=== PATIENT | male | born 1965 | race Caucasian/White ===

== ENCOUNTER 2020-09-04 21:05 | Emergency (ER) | payer SELFPAY ==
[~2020-09-04] VITALS: Ht 190.5 cm; Wt 111.1 kg
[2020-09-04] MEDS ORDERED: ACETAMINOPHEN 325 MG TAB PO ONE (22:30)
[2020-09-04 22:33] VITALS: BP 100/55
== END 2020-09-05 00:46 | disposition home or self-care (01) ==
LOC: ER 21:11
DX: M25.461 Effusion, right knee (principal); I10 Essential (primary) hypertension; F17.210 Nicotine dependence, cigarettes, uncomplicated; Z98.890 Other specified postprocedural states
CPT/HCPCS: 29505; 73562; 73610; 73630

== ENCOUNTER 2020-10-17 04:57 | Inpatient (IN) | payer MEDICAID ==
[~2020-10-17] VITALS: Ht 190.5 cm; Wt 131.6 kg
[2020-10-17] VITALS (24 sets, daily range): BP systolic 84–137; BP diastolic 51–83
[2020-10-17] MEDS ORDERED: ENOXAPARIN SOD 120 MG/0.8 ML SYRINGE SC ONE (06:45)
[2020-10-17] MEDS ORDERED: CLOPIDOGREL BISULFATE 75 MG TAB PO ONE (06:45)
[2020-10-17] MEDS ORDERED: IOHEXOL 350 MG/ML 100ML IJ ONE (06:48)
[2020-10-17 09:17] LABS: Basophils # (auto) 0.1 10 ^3/uL (0-0.2); Eosinophils # (auto) 0.2 10 ^3/uL (0-0.8); Eosinophils % (auto) 4.2 % (0.0-7.0); Hematocrit 37.1 % (41.0-53.0); Hemoglobin 12.4 g/dL (13.5-17.5); Lymphocytes # (auto) 1.3 10 ^3/uL (0.4-5.4); Lymphocytes % (auto) 23.6 % (10.0-50.0); Mean Corpuscular Hemoglobin 30.2 pg (28.0-32.0); Mean Corpuscular Hgb Conc. 33.4 g/dL (32.0-36.0); Mean Corpuscular Volume 90.3 fL (80.0-100.0); Monocytes # (auto) 0.7 10 ^3/uL (0-1.3); Monocytes % (auto) 12.5 % (0.0-12.0); Neutrophils # (auto) 3.3 10 ^3/uL (1.6-8.6); Neutrophils % (auto) 58.7 % (37.0-80.0); Platelet Count (auto) 103 10^3/uL (140-450); Red Blood Cells 4.11 10^6/uL (4.5-5.90); Red Cell Distribution Width 14.9 % (11.8-14.3); White Blood Cell 5.6 10^3/uL (4.4-10.8)
[2020-10-17 09:40] LABS: Albumin 2.7 g/dL (3.4-5.0); BUN/Creatinine Ratio 12.1; Calcium 7.8 mg/dL (8.5-10.1); Potassium 3.6 mmol/L (3.5-5.1)
[2020-10-17 09:55] LABS: Bilirubin, Total 1.6 mg/dL (0.2-1.0); Total Protein 6.7 g/dL (6.4-8.2)
[2020-10-17] MEDS ORDERED: NICOTINE 21MG/24 HR TOPICAL PATCH TD SCH (11:15)
[2020-10-17] MEDS ORDERED: MORPHINE SULF INJ 2 MG/ML SYRINGE 1ML IV PRN ×2 (11:15)
[2020-10-17] MEDS ORDERED: NITROGLYCERIN 0.4 MG SL TAB SL PRN (11:15)
[2020-10-17] MEDS ORDERED: ONDANSETRON HCL 4 MG/2 ML VIAL IV PRN (11:15)
[2020-10-17] MEDS ORDERED: ACETAMINOPHEN 500 MG TAB PO PRN (11:15)
[2020-10-17] MEDS ORDERED: HYDROcodone-ACET 5/325MG TAB PO PRN (11:15)
[2020-10-17] MEDS: cefTRIAXone 1GM/50ML D5W 50 ML IV SCH (11:41)
[2020-10-17] MEDS: PROPRANOLOL HCL 20 MG TAB PO SCH ×2 (11:41→22:00)
[2020-10-17] MEDS: SPIRONOLACTONE 25 MG TAB PO SCH (11:41)
[2020-10-17] MEDS ORDERED: FOLIC ACID 1 MG, MULTIPLE VITAMIN 10 ML, MAGNESIUM SULF SDV 50% 8 MEQ, THIAMINE INJ 100... INJ SCH ×5 (12:00)
[2020-10-17 12:30] LABS: INR 1.18 (0.9-1.15)
[2020-10-17 13:11] LABS: Urine Bacteria NONE SEEN /hpf (None Seen); Urine Blood 1+ /uL (Negative); Urine Mucus FEW (None Seen); Urine Specific Gravity 1.035 (1.001-1.035); Urine WBC 4 /hpf (0 - 3)
[2020-10-17 13:15] LABS: Alcohol, Urine < 3.0 mg/dL (0-10); Amphetamine Screen, Urine POSITIVE (NEGATIVE); Barbiturate Scree,Urine NEGATIVE (NEGATIVE); Benzodiazephine Screen, Urine NEGATIVE (NEGATIVE); Cocaine Screen, Urine NEGATIVE (NEGATIVE); Opiate Scree,Urine POSITIVE (NEGATIVE); Phencyclidine Screen, Urine NEGATIVE (NEGATIVE)
[2020-10-17 13:23] LABS: Cannabinoid Screen, Urine POSITIVE (NEGATIVE)
[2020-10-17] MEDS: CLINDAMYCIN 300MG IV 50 ML IV SCH ×2 (14:00→22:20)
[2020-10-17] MEDS: LORazepam 2MG/ML-1ML VIAL IV PRN (14:02)
[2020-10-17] MEDS ORDERED: SUCCINYLCHOLINE CHLORIDE 20 MG/ML 10ML VIAL IV ONE ×2 (15:48→16:30)
[2020-10-17] MEDS ORDERED: MIDAZOLAM DRIP 50 mg/50mL 50 ML IV ONE (15:48)
[2020-10-17] MEDS ORDERED: ETOMIDATE (2MG/ML) 20ML VIAL IV ONE ×3 (15:48→16:30)
[2020-10-17] MEDS ORDERED: NOREPINEPHRINE 8 MG/250ML KIT 250 ML IV ONE (16:02)
[2020-10-17] MEDS ORDERED: fentaNYL Drip 2500mCg/250mlNS 250 ML IV ONE (16:16)
[2020-10-17] MEDS: fentaNYL Drip 2500mCg/250mlNS 250 ML IV SCH (16:30)
[2020-10-17] MEDS ORDERED: fentaNYL Drip 2500mCg/250mlNS 250 ML IV SCH (16:30)
[2020-10-17] MEDS ORDERED: MIDAZOLAM DRIP 50 mg/50mL 50 ML IV SCH (16:30)
[2020-10-17] MEDS: NOREPINEPHRINE 8 MG/250ML KIT 250 ML IV SCH (16:40)
[2020-10-17] MEDS: MIDAZOLAM DRIP 50 mg/50mL 50 ML IV SCH (16:53)
[2020-10-17] MEDS ORDERED: WARFARIN SODIUM 10 MG TAB PO ONE (17:00)
[2020-10-17] MEDS: ENOXAPARIN SOD 120 MG/0.8 ML SYRINGE SC SCH (22:30)
[2020-10-17 23:00] LABS: Basophils # (auto) 0.1 10 ^3/uL (0-0.2); Basophils % (auto) 0.8 % (0.0-2.0); Eosinophils # (auto) 0.2 10 ^3/uL (0-0.8); Eosinophils % (auto) 1.7 % (0.0-7.0); Hemoglobin 14.4 g/dL (13.5-17.5); Mean Corpuscular Hgb Conc. 34.2 g/dL (32.0-36.0); Mean Corpuscular Volume 90.8 fL (80.0-100.0); Monocytes # (auto) 1.1 10 ^3/uL (0-1.3); Monocytes % (auto) 10.7 % (0.0-12.0); Neutrophils # (auto) 7.2 10 ^3/uL (1.6-8.6); Neutrophils % (auto) 67.8 % (37.0-80.0); Nucleated Red Blood Cells % 0.6 %; Platelet Count (auto) 172 10^3/uL (140-450); Red Blood Cells 4.63 10^6/uL (4.5-5.90); Red Cell Distribution Width 14.8 % (11.8-14.3); White Blood Cell 10.7 10^3/uL (4.4-10.8)
[2020-10-17 23:15] LABS: INR 1.26 (0.9-1.15); Partial Thromboplastin Time 28.6 sec (23.0-31.2)
[2020-10-17 23:21] LABS: Albumin 3.1 g/dL (3.4-5.0); BUN/Creatinine Ratio 12.2; Calcium 8.2 mg/dL (8.5-10.1); Potassium 5.2 mmol/L (3.5-5.1)
[2020-10-17 23:32] LABS: Magnesium 2.2 mg/dL (1.6-2.6); Total Protein 7.9 g/dL (6.4-8.2)
[2020-10-18] VITALS (83 sets, daily range): BP systolic 75–144; BP diastolic 41–84
[2020-10-18] MEDS ORDERED: PROPOFOL 100 ML IV ONE (00:18)
[2020-10-18] MEDS: CLINDAMYCIN 300MG IV 50 ML IV SCH ×3 (06:00→22:00)
[2020-10-18] MEDS: PROPOFOL 100 ML IV SCH ×3 (09:00→15:59)
[2020-10-18] MEDS: cefTRIAXone 1GM/50ML D5W 50 ML IV SCH ×2 (09:47→23:00)
[2020-10-18] MEDS: ENOXAPARIN SOD 120 MG/0.8 ML SYRINGE SC SCH ×2 (09:48→22:00)
[2020-10-18] MEDS: FLORASTOR (S. BOULARDII) 250 MG CAP PO SCH (09:49)
[2020-10-18] MEDS: SPIRONOLACTONE 25 MG TAB PO SCH (09:50)
[2020-10-18] MEDS: PROPRANOLOL HCL 20 MG TAB PO SCH ×2 (09:50→22:00)
[2020-10-18] MEDS ORDERED: FAMOTIDINE 20 MG TAB PO SCH (10:00)
[2020-10-18 11:31] LABS: Hematocrit 43.1 % (41.0-53.0); Hemoglobin 14.4 g/dL (13.5-17.5); Mean Corpuscular Hemoglobin 30.8 pg (28.0-32.0); Mean Corpuscular Hgb Conc. 33.4 g/dL (32.0-36.0); Mean Corpuscular Volume 92.2 fL (80.0-100.0); Platelet Count (auto) 137 10^3/uL (140-450); Red Blood Cells 4.67 10^6/uL (4.5-5.90); Red Cell Distribution Width 15.1 % (11.8-14.3); White Blood Cell 16.6 10^3/uL (4.4-10.8)
[2020-10-18 11:53] LABS: Basophils % (manual) 0 (0.0-2.0); Blast Cells 0; Metamyelocytes % 0; Myelocytes % 0; Promyelocytes % 0; Reactive Lymphocytes 0
[2020-10-18] MEDS: MIDAZOLAM DRIP 50 mg/50mL 50 ML IV SCH (12:00)
[2020-10-18] MEDS: SODIUM CHLORIDE 0.9% 1,000 ML IV SCH ×2 (12:00→23:35)
[2020-10-18 12:41] LABS: Band Neutrophils % (manual) 2; Lymphocytes % (manual) 27 (10.0-50.0)
[2020-10-18 12:42] LABS: Eosinophils % (manual) 3 (0-7); Monocytes % (manual) 16 (0-12)
[2020-10-18 12:50] LABS: Calcium 7.9 mg/dL (8.5-10.1); Potassium 4.3 mmol/L (3.5-5.1)
[2020-10-18] MEDS: NOREPINEPHRINE 8 MG/250ML KIT 250 ML IV SCH (16:30)
[2020-10-18] MEDS: fentaNYL Drip 2500mCg/250mlNS 250 ML IV SCH (18:21)
[2020-10-18] MEDS: SUCRALFATE 1 GM/10 ML ORAL SUSP GT SCH (22:00)
[2020-10-18] MEDS: PANTOPRAZOLE 40 MG/10 ML VIAL INJ IV SCH (22:00)
[2020-10-19] VITALS (67 sets, daily range): BP systolic 95–122; BP diastolic 7–73
[2020-10-19 04:07] LABS: Basophils # (auto) 0.1 10 ^3/uL (0-0.2); Basophils % (auto) 0.8 % (0.0-2.0); Eosinophils # (auto) 0.4 10 ^3/uL (0-0.8); Hematocrit 40.7 % (41.0-53.0); Hemoglobin 14.2 g/dL (13.5-17.5); Lymphocytes # (auto) 2.1 10 ^3/uL (0.4-5.4); Lymphocytes % (auto) 22.7 % (10.0-50.0); Mean Corpuscular Hemoglobin 31.1 pg (28.0-32.0); Monocytes # (auto) 1.1 10 ^3/uL (0-1.3); Monocytes % (auto) 12.2 % (0.0-12.0); Neutrophils # (auto) 5.6 10 ^3/uL (1.6-8.6); Neutrophils % (auto) 60.3 % (37.0-80.0); Nucleated Red Blood Cells % 0.3 %; Platelet Count (auto) 118 10^3/uL (140-450); Red Blood Cells 4.57 10^6/uL (4.5-5.90); Red Cell Distribution Width 14.4 % (11.8-14.3); White Blood Cell 9.4 10^3/uL (4.4-10.8)
[2020-10-19 04:21] LABS: INR 1.27 (0.9-1.15); Partial Thromboplastin Time 32.8 sec (23.0-31.2)
[2020-10-19 04:29] LABS: Potassium 4.1 mmol/L (3.5-5.1)
[2020-10-19 04:36] LABS: Albumin 2.6 g/dL (3.4-5.0); BUN/Creatinine Ratio 17.9; Bilirubin, Total 3.1 mg/dL (0.2-1.0); Calcium 7.8 mg/dL (8.5-10.1)
[2020-10-19] MEDS: ALBUTEROL SULF 2.5 MG/0.5ML(0.5%) NEB SOLN NEB PRN (06:13)
[2020-10-19] MEDS: IPRATROPIUM BROM 0.5 MG/2.5ML INH SOL NEB PRN (06:13)
[2020-10-19] MEDS: SUCRALFATE 1 GM/10 ML ORAL SUSP GT SCH ×4 (06:25→22:54)
[2020-10-19] MEDS: CLINDAMYCIN 300MG IV 50 ML IV SCH ×3 (06:25→22:55)
[2020-10-19] MEDS: PROPRANOLOL HCL 20 MG TAB PO SCH ×2 (10:00→22:00)
[2020-10-19] MEDS: ENOXAPARIN SOD 120 MG/0.8 ML SYRINGE SC SCH (10:15)
[2020-10-19] MEDS: FLORASTOR (S. BOULARDII) 250 MG CAP PO SCH (10:15)
[2020-10-19] MEDS: PANTOPRAZOLE 40 MG/10 ML VIAL INJ IV SCH ×2 (10:16→22:55)
[2020-10-19] MEDS: cefTRIAXone 1GM/50ML D5W 50 ML IV SCH (10:16)
[2020-10-19] MEDS: SODIUM CHLORIDE 0.9% 1,000 ML IV SCH (12:55)
[2020-10-19] MEDS: NOREPINEPHRINE 8 MG/250ML KIT 250 ML IV SCH (14:03)
[2020-10-19] MEDS: fentaNYL Drip 2500mCg/250mlNS 250 ML IV SCH (16:30)
[2020-10-19] MEDS: MIDAZOLAM DRIP 50 mg/50mL 50 ML IV SCH (16:45)
[2020-10-20] VITALS (89 sets, daily range): BP systolic 91–131; BP diastolic 43–82
[2020-10-20] MEDS: cefTRIAXone 1GM/50ML D5W 50 ML IV SCH ×3 (00:16→21:08)
[2020-10-20] MEDS: PROPOFOL 100 ML IV SCH ×2 (00:23→23:18)
[2020-10-20] MEDS: MIDAZOLAM DRIP 50 mg/50mL 50 ML IV SCH ×3 (00:24→19:40)
[2020-10-20] MEDS: CLINDAMYCIN 300MG IV 50 ML IV SCH ×3 (06:00→21:55)
[2020-10-20] MEDS: SUCRALFATE 1 GM/10 ML ORAL SUSP GT SCH ×4 (07:00→21:08)
[2020-10-20] MEDS: PROPRANOLOL HCL 20 MG TAB PO SCH ×2 (10:00→21:08)
[2020-10-20] MEDS: PANTOPRAZOLE 40 MG/10 ML VIAL INJ IV SCH ×2 (10:21→21:08)
[2020-10-20] MEDS: FLORASTOR (S. BOULARDII) 250 MG CAP PO SCH (10:22)
[2020-10-20] MEDS ORDERED: ENOXAPARIN SOD 150 MG/1 ML SYRINGE SC ONE (13:45)
[2020-10-20 14:55] LABS: BUN/Creatinine Ratio 17.1; Calcium 7.6 mg/dL (8.5-10.1); Potassium 4.2 mmol/L (3.5-5.1)
[2020-10-20] MEDS: fentaNYL Drip 2500mCg/250mlNS 250 ML IV SCH (16:14)
[2020-10-20] MEDS: NOREPINEPHRINE 8 MG/250ML KIT 250 ML IV SCH (16:15)
[2020-10-20] MEDS ORDERED: ENOXAPARIN SOD 150 MG/1 ML SYRINGE SC SCH (22:00)
[2020-10-21] VITALS (103 sets, daily range): BP systolic 81–117; BP diastolic 37–99
[2020-10-21] MEDS: MIDAZOLAM DRIP 50 mg/50mL 50 ML IV SCH ×3 (00:20→19:30)
[2020-10-21] MEDS: IPRATROPIUM BROM 0.5 MG/2.5ML INH SOL NEB PRN (02:28)
[2020-10-21] MEDS: ALBUTEROL SULF 2.5 MG/0.5ML(0.5%) NEB SOLN NEB PRN (02:28)
[2020-10-21] MEDS: SUCRALFATE 1 GM/10 ML ORAL SUSP GT SCH ×4 (05:40→21:03)
[2020-10-21] MEDS: fentaNYL Drip 2500mCg/250mlNS 250 ML IV SCH (05:40)
[2020-10-21] MEDS: CLINDAMYCIN 300MG IV 50 ML IV SCH ×3 (05:40→22:00)
[2020-10-21] MEDS: PROPOFOL 100 ML IV SCH ×3 (05:41→21:04)
[2020-10-21 05:51] LABS: Basophils # (auto) 0.1 10 ^3/uL (0-0.2); Basophils % (auto) 1.3 % (0.0-2.0); Eosinophils # (auto) 0.2 10 ^3/uL (0-0.8); Eosinophils % (auto) 2.9 % (0.0-7.0); Hematocrit 38.8 % (41.0-53.0); Hemoglobin 13.6 g/dL (13.5-17.5); Lymphocytes # (auto) 0.9 10 ^3/uL (0.4-5.4); Lymphocytes % (auto) 12.6 % (10.0-50.0); Mean Corpuscular Hemoglobin 31.2 pg (28.0-32.0); Mean Corpuscular Volume 89.3 fL (80.0-100.0); Monocytes # (auto) 0.9 10 ^3/uL (0-1.3); Monocytes % (auto) 11.9 % (0.0-12.0); Neutrophils # (auto) 5.2 10 ^3/uL (1.6-8.6); Neutrophils % (auto) 71.3 % (37.0-80.0); Nucleated Red Blood Cells % 0.2 %; Platelet Count (auto) 276 10^3/uL (140-450); Red Blood Cells 4.35 10^6/uL (4.5-5.90); Red Cell Distribution Width 15.1 % (11.8-14.3); White Blood Cell 7.3 10^3/uL (4.4-10.8)
[2020-10-21] MEDS: cefTRIAXone 1GM/50ML D5W 50 ML IV SCH ×2 (09:52→21:03)
[2020-10-21] MEDS: PANTOPRAZOLE 40 MG/10 ML VIAL INJ IV SCH ×2 (09:52→21:03)
[2020-10-21] MEDS: FLORASTOR (S. BOULARDII) 250 MG CAP PO SCH (09:53)
[2020-10-21] MEDS: PROPRANOLOL HCL 20 MG TAB PO SCH ×2 (09:53→21:03)
[2020-10-21] MEDS: ENOXAPARIN SOD 80 MG/0.8ML SYRINGE SC SCH ×2 (10:00→21:03)
[2020-10-21] MEDS: NOREPINEPHRINE 8 MG/250ML KIT 250 ML IV SCH (15:37)
[2020-10-22] VITALS (103 sets, daily range): BP systolic 87–163; BP diastolic 35–110
[2020-10-22 04:37] LABS: Basophils # (auto) 0.1 10 ^3/uL (0-0.2); Eosinophils # (auto) 0.2 10 ^3/uL (0-0.8); Eosinophils % (auto) 3.1 % (0.0-7.0); Hematocrit 38.1 % (41.0-53.0); Lymphocytes # (auto) 1.1 10 ^3/uL (0.4-5.4); Lymphocytes % (auto) 15.5 % (10.0-50.0); Mean Corpuscular Hemoglobin 30.5 pg (28.0-32.0); Mean Corpuscular Hgb Conc. 34.2 g/dL (32.0-36.0); Mean Corpuscular Volume 89.1 fL (80.0-100.0); Monocytes # (auto) 0.8 10 ^3/uL (0-1.3); Monocytes % (auto) 11.2 % (0.0-12.0); Neutrophils % (auto) 69.2 % (37.0-80.0); Nucleated Red Blood Cells % 0.1 %; Platelet Count (auto) 121 10^3/uL (140-450); Red Blood Cells 4.28 10^6/uL (4.5-5.90); Red Cell Distribution Width 15.3 % (11.8-14.3); White Blood Cell 7.3 10^3/uL (4.4-10.8)
[2020-10-22 04:53] LABS: Calcium 7.4 mg/dL (8.5-10.1); Potassium 4.5 mmol/L (3.5-5.1)
[2020-10-22 04:59] LABS: Albumin 2.3 g/dL (3.4-5.0); BUN/Creatinine Ratio 22.2; Bilirubin, Total 3.9 mg/dL (0.2-1.0); Total Protein 6.8 g/dL (6.4-8.2)
[2020-10-22] MEDS: SUCRALFATE 1 GM/10 ML ORAL SUSP GT SCH ×4 (05:09→20:36)
[2020-10-22] MEDS: CLINDAMYCIN 300MG IV 50 ML IV SCH ×3 (05:09→20:36)
[2020-10-22] MEDS: MIDAZOLAM DRIP 50 mg/50mL 50 ML IV SCH ×4 (05:48→16:42)
[2020-10-22] MEDS: PANTOPRAZOLE 40 MG/10 ML VIAL INJ IV SCH ×2 (09:18→20:36)
[2020-10-22] MEDS: cefTRIAXone 1GM/50ML D5W 50 ML IV SCH ×2 (09:19→21:29)
[2020-10-22] MEDS: FLORASTOR (S. BOULARDII) 250 MG CAP PO SCH (09:19)
[2020-10-22] MEDS: PROPRANOLOL HCL 20 MG TAB PO SCH ×2 (09:20→20:36)
[2020-10-22] MEDS: ENOXAPARIN SOD 80 MG/0.8ML SYRINGE SC SCH ×2 (09:22→20:36)
[2020-10-22] MEDS: PROPOFOL 100 ML IV SCH ×3 (10:48→20:36)
[2020-10-22] MEDS: NOREPINEPHRINE 8 MG/250ML KIT 250 ML IV SCH (16:40)
[2020-10-22] MEDS: fentaNYL Drip 2500mCg/250mlNS 250 ML IV SCH (16:42)
[2020-10-23] VITALS (59 sets, daily range): BP systolic 89–138; BP diastolic 47–92
[2020-10-23] MEDS: fentaNYL Drip 2500mCg/250mlNS 250 ML IV SCH ×2 (03:48→08:12)
[2020-10-23] MEDS: PROPOFOL 100 ML IV SCH ×5 (03:49→17:20)
[2020-10-23] MEDS: MIDAZOLAM DRIP 50 mg/50mL 50 ML IV SCH ×3 (03:49→17:21)
[2020-10-23 03:50] LABS: Basophils # (auto) 0.1 10 ^3/uL (0-0.2); Basophils % (auto) 0.9 % (0.0-2.0); Eosinophils # (auto) 0.5 10 ^3/uL (0-0.8); Eosinophils % (auto) 5.9 % (0.0-7.0); Hematocrit 38.9 % (41.0-53.0); Hemoglobin 13.7 g/dL (13.5-17.5); Lymphocytes # (auto) 1.5 10 ^3/uL (0.4-5.4); Mean Corpuscular Hemoglobin 31.3 pg (28.0-32.0); Mean Corpuscular Hgb Conc. 35.1 g/dL (32.0-36.0); Mean Corpuscular Volume 89.1 fL (80.0-100.0); Monocytes # (auto) 1.1 10 ^3/uL (0-1.3); Monocytes % (auto) 12.2 % (0.0-12.0); Neutrophils # (auto) 5.8 10 ^3/uL (1.6-8.6); Nucleated Red Blood Cells % 0.2 %; Platelet Count (auto) 210 10^3/uL (140-450); Red Blood Cells 4.36 10^6/uL (4.5-5.90); Red Cell Distribution Width 15.2 % (11.8-14.3)
[2020-10-23 04:10] LABS: Albumin 2.2 g/dL (3.4-5.0); Calcium 7.5 mg/dL (8.5-10.1)
[2020-10-23 04:13] LABS: BUN/Creatinine Ratio 20.6; Bilirubin, Total 4.2 mg/dL (0.2-1.0); Total Protein 6.8 g/dL (6.4-8.2)
[2020-10-23] MEDS: CLINDAMYCIN 300MG IV 50 ML IV SCH ×3 (06:00→22:36)
[2020-10-23] MEDS: SUCRALFATE 1 GM/10 ML ORAL SUSP GT SCH ×4 (06:24→22:36)
[2020-10-23] MEDS: NOREPINEPHRINE 8 MG/250ML KIT 250 ML IV SCH (08:13)
[2020-10-23 08:19] LABS: Magnesium 1.9 mg/dL (1.6-2.6); Phosphorus 3.4 mg/dL (2.5-4.90)
[2020-10-23] MEDS: PROPRANOLOL HCL 20 MG TAB PO SCH ×2 (08:45→22:00)
[2020-10-23] MEDS: cefTRIAXone 1GM/50ML D5W 50 ML IV SCH ×2 (09:30→22:36)
[2020-10-23] MEDS: PANTOPRAZOLE 40 MG/10 ML VIAL INJ IV SCH ×2 (09:30→22:36)
[2020-10-23] MEDS: ENOXAPARIN SOD 80 MG/0.8ML SYRINGE SC SCH ×2 (09:31→22:36)
[2020-10-23] MEDS: FLORASTOR (S. BOULARDII) 250 MG CAP PO SCH (10:00)
[2020-10-23] MEDS ORDERED: FLUCONAZOLE 200MG/100ML 100 ML IV ONE (12:00)
[2020-10-23] MEDS: IPRATROPIUM BROM 0.5 MG/2.5ML INH SOL NEB PRN ×2 (14:14→18:53)
[2020-10-23] MEDS: ALBUTEROL SULF 2.5 MG/0.5ML(0.5%) NEB SOLN NEB PRN ×2 (14:14→18:53)
[2020-10-24] VITALS (98 sets, daily range): BP systolic 89–125; BP diastolic 48–79
[2020-10-24] MEDS: fentaNYL Drip 2500mCg/250mlNS 250 ML IV SCH ×2 (02:00→12:57)
[2020-10-24] MEDS: CLINDAMYCIN 300MG IV 50 ML IV SCH ×3 (05:51→21:52)
[2020-10-24] MEDS: SUCRALFATE 1 GM/10 ML ORAL SUSP GT SCH ×4 (05:51→21:52)
[2020-10-24] MEDS: MIDAZOLAM DRIP 50 mg/50mL 50 ML IV SCH ×2 (05:54→09:06)
[2020-10-24 06:07] LABS: Basophils # (auto) 0.1 10 ^3/uL (0-0.2); Basophils % (auto) 1.1 % (0.0-2.0); Eosinophils # (auto) 0.5 10 ^3/uL (0-0.8); Eosinophils % (auto) 6.6 % (0.0-7.0); Hematocrit 40.4 % (41.0-53.0); Hemoglobin 13.8 g/dL (13.5-17.5); Lymphocytes # (auto) 1.5 10 ^3/uL (0.4-5.4); Lymphocytes % (auto) 19.5 % (10.0-50.0); Mean Corpuscular Hemoglobin 30.8 pg (28.0-32.0); Mean Corpuscular Hgb Conc. 34.1 g/dL (32.0-36.0); Mean Corpuscular Volume 90.2 fL (80.0-100.0); Monocytes % (auto) 12.1 % (0.0-12.0); Neutrophils # (auto) 4.8 10 ^3/uL (1.6-8.6); Neutrophils % (auto) 60.7 % (37.0-80.0); Nucleated Red Blood Cells % 0.2 %; Platelet Count (auto) 138 10^3/uL (140-450); Red Blood Cells 4.48 10^6/uL (4.5-5.90); Red Cell Distribution Width 15.5 % (11.8-14.3); White Blood Cell 7.9 10^3/uL (4.4-10.8)
[2020-10-24 06:26] LABS: Calcium 7.6 mg/dL (8.5-10.1); Potassium 4.4 mmol/L (3.5-5.1)
[2020-10-24] MEDS: PROPRANOLOL HCL 20 MG TAB PO SCH ×2 (09:04→21:52)
[2020-10-24] MEDS: cefTRIAXone 1GM/50ML D5W 50 ML IV SCH ×2 (09:06→21:52)
[2020-10-24] MEDS: PROPOFOL 100 ML IV SCH ×5 (09:06→22:15)
[2020-10-24] MEDS: ENOXAPARIN SOD 80 MG/0.8ML SYRINGE SC SCH ×2 (09:07→21:52)
[2020-10-24] MEDS: PANTOPRAZOLE 40 MG/10 ML VIAL INJ IV SCH ×2 (09:07→21:52)
[2020-10-24] MEDS: FLORASTOR (S. BOULARDII) 250 MG CAP PO SCH (09:07)
[2020-10-24] MEDS ORDERED: FLUCONAZOLE 200MG/100ML 100 ML IV SCH (10:00)
[2020-10-24] MEDS: FLUCONAZOLE 200MG/100ML 100 ML IV SCH ×2 (10:06→11:56)
[2020-10-24] MEDS: NOREPINEPHRINE 8 MG/250ML KIT 250 ML IV SCH ×2 (14:20→23:59)
[2020-10-25] VITALS (106 sets, daily range): BP systolic 87–116; BP diastolic 51–69
[2020-10-25] MEDS: PROPOFOL 100 ML IV SCH ×4 (01:00→18:17)
[2020-10-25 04:06] LABS: Basophils # (auto) 0.1 10 ^3/uL (0-0.2); Basophils % (auto) 0.9 % (0.0-2.0); Eosinophils # (auto) 0.5 10 ^3/uL (0-0.8); Eosinophils % (auto) 5.6 % (0.0-7.0); Hematocrit 40.6 % (41.0-53.0); Hemoglobin 13.9 g/dL (13.5-17.5); Lymphocytes # (auto) 1.2 10 ^3/uL (0.4-5.4); Lymphocytes % (auto) 14.3 % (10.0-50.0); Mean Corpuscular Hemoglobin 30.8 pg (28.0-32.0); Mean Corpuscular Hgb Conc. 34.2 g/dL (32.0-36.0); Mean Corpuscular Volume 89.8 fL (80.0-100.0); Monocytes % (auto) 11.5 % (0.0-12.0); Neutrophils # (auto) 5.6 10 ^3/uL (1.6-8.6); Neutrophils % (auto) 67.7 % (37.0-80.0); Nucleated Red Blood Cells % 0.3 %; Platelet Count (auto) 157 10^3/uL (140-450); Red Blood Cells 4.52 10^6/uL (4.5-5.90); Red Cell Distribution Width 15.3 % (11.8-14.3); White Blood Cell 8.3 10^3/uL (4.4-10.8)
[2020-10-25 04:23] LABS: BUN/Creatinine Ratio 23.2; Calcium 7.9 mg/dL (8.5-10.1); Potassium 4.7 mmol/L (3.5-5.1)
[2020-10-25] MEDS: fentaNYL Drip 2500mCg/250mlNS 250 ML IV SCH (05:49)
[2020-10-25] MEDS: SUCRALFATE 1 GM/10 ML ORAL SUSP GT SCH ×4 (07:00→22:12)
[2020-10-25] MEDS: CLINDAMYCIN 300MG IV 50 ML IV SCH ×3 (10:00→22:12)
[2020-10-25] MEDS: PROPRANOLOL HCL 20 MG TAB PO SCH ×2 (10:00→22:00)
[2020-10-25] MEDS: PANTOPRAZOLE 40 MG/10 ML VIAL INJ IV SCH ×2 (10:22→22:12)
[2020-10-25] MEDS: cefTRIAXone 1GM/50ML D5W 50 ML IV SCH ×2 (10:22→22:12)
[2020-10-25] MEDS: ENOXAPARIN SOD 80 MG/0.8ML SYRINGE SC SCH (10:22)
[2020-10-25] MEDS: FLORASTOR (S. BOULARDII) 250 MG CAP PO SCH (10:22)
[2020-10-25] MEDS: FLUCONAZOLE 200MG/100ML 100 ML IV SCH ×2 (10:22→11:27)
[2020-10-25] MEDS: MIDAZOLAM DRIP 50 mg/50mL 50 ML IV SCH (12:40)
[2020-10-25] MEDS: NOREPINEPHRINE 8 MG/250ML KIT 250 ML IV SCH (12:41)
[2020-10-25] MEDS ORDERED: FUROSEMIDE 40 MG/4 ML VIAL IV ONE (20:45)
[2020-10-25] MEDS: APIXABAN 5 MG TAB PO SCH (22:15)
[2020-10-26] VITALS (106 sets, daily range): BP systolic 75–151; BP diastolic 30–82
[2020-10-26 04:11] LABS: Calcium 7.8 mg/dL (8.5-10.1); Potassium 4.2 mmol/L (3.5-5.1)
[2020-10-26 04:13] LABS: BUN/Creatinine Ratio 23.4
[2020-10-26] MEDS: PROPOFOL 100 ML IV SCH (04:37)
[2020-10-26] MEDS: SUCRALFATE 1 GM/10 ML ORAL SUSP GT SCH ×4 (06:28→22:03)
[2020-10-26] MEDS: CLINDAMYCIN 300MG IV 50 ML IV SCH ×3 (06:28→22:03)
[2020-10-26] MEDS: PROPRANOLOL HCL 20 MG TAB PO SCH (10:00)
[2020-10-26] MEDS: cefTRIAXone 1GM/50ML D5W 50 ML IV SCH ×2 (10:28→22:03)
[2020-10-26] MEDS: PANTOPRAZOLE 40 MG/10 ML VIAL INJ IV SCH ×2 (10:29→22:07)
[2020-10-26] MEDS: APIXABAN 5 MG TAB PO SCH ×2 (10:29→22:03)
[2020-10-26] MEDS: FLORASTOR (S. BOULARDII) 250 MG CAP PO SCH (10:29)
[2020-10-26] MEDS: FLUCONAZOLE 200MG/100ML 100 ML IV SCH ×2 (11:05→12:30)
[2020-10-26] MEDS: NOREPINEPHRINE 8 MG/250ML KIT 250 ML IV SCH (16:30)
[2020-10-26] MEDS: fentaNYL Drip 2500mCg/250mlNS 250 ML IV SCH (16:30)
[2020-10-26] MEDS: MIDAZOLAM DRIP 50 mg/50mL 50 ML IV SCH (16:45)
[2020-10-27] VITALS (100 sets, daily range): BP systolic 89–171; BP diastolic 58–137
[2020-10-27] MEDS: CLINDAMYCIN 300MG IV 50 ML IV SCH ×3 (05:56→22:09)
[2020-10-27] MEDS: SUCRALFATE 1 GM/10 ML ORAL SUSP GT SCH ×4 (05:56→22:09)
[2020-10-27] MEDS: FLUCONAZOLE 200MG/100ML 100 ML IV SCH ×2 (09:45→12:30)
[2020-10-27] MEDS: cefTRIAXone 1GM/50ML D5W 50 ML IV SCH ×2 (09:45→22:09)
[2020-10-27] MEDS: PANTOPRAZOLE 40 MG/10 ML VIAL INJ IV SCH ×2 (10:25→22:09)
[2020-10-27] MEDS: FLORASTOR (S. BOULARDII) 250 MG CAP PO SCH (10:26)
[2020-10-27] MEDS: APIXABAN 5 MG TAB PO SCH ×2 (10:26→22:00)
[2020-10-27] MEDS: ACCU-CHEK COMFORT CURVE STRIP VI SCH ×2 (11:10→17:35)
[2020-10-27 13:27] LABS: Basophils # (auto) 0 10 ^3/uL (0-0.2); Eosinophils # (auto) 0.1 10 ^3/uL (0-0.8); Eosinophils % (auto) 1.7 % (0.0-7.0); Hematocrit 37.5 % (41.0-53.0); Hemoglobin 12.7 g/dL (13.5-17.5); Lymphocytes # (auto) 0.6 10 ^3/uL (0.4-5.4); Lymphocytes % (auto) 11.7 % (10.0-50.0); Mean Corpuscular Hemoglobin 30.6 pg (28.0-32.0); Mean Corpuscular Volume 90.2 fL (80.0-100.0); Monocytes # (auto) 0.5 10 ^3/uL (0-1.3); Monocytes % (auto) 9.7 % (0.0-12.0); Neutrophils # (auto) 3.8 10 ^3/uL (1.6-8.6); Neutrophils % (auto) 75.9 % (37.0-80.0); Nucleated Red Blood Cells % 0.1 %; Platelet Count (auto) 89 10^3/uL (140-450); Red Blood Cells 4.16 10^6/uL (4.5-5.90); Red Cell Distribution Width 15.6 % (11.8-14.3); White Blood Cell 4.9 10^3/uL (4.4-10.8)
[2020-10-27] MEDS ORDERED: DEXTROSE (50%) 50ML SYRG IV PRN (13:30)
[2020-10-27 13:37] LABS: BUN/Creatinine Ratio 28.9; Calcium 7.7 mg/dL (8.5-10.1); Potassium 3.7 mmol/L (3.5-5.1)
[2020-10-27] MEDS: NOREPINEPHRINE 8 MG/250ML KIT 250 ML IV SCH (16:30)
[2020-10-27] MEDS: fentaNYL Drip 2500mCg/250mlNS 250 ML IV SCH (16:30)
[2020-10-27] MEDS: MIDAZOLAM DRIP 50 mg/50mL 50 ML IV SCH (16:45)
[2020-10-27] MEDS ORDERED: METOPROLOL TARTRATE 1MG/1ML-5ML VIAL IV PRN (18:00)
[2020-10-27] MEDS ORDERED: DIGOXIN (250MCG/ML) 2 ML AMPULE IV ONE (18:15)
[2020-10-27] MEDS ORDERED: dilTIAZem 25 MG/5 ML VIAL IV PRN (18:15)
[2020-10-27] MEDS ORDERED: dilTIAZem 125mg/125ml BAG KIT 125 ML IV SCH (18:15)
[2020-10-27] MEDS ORDERED: METOPROLOL TARTRATE 1MG/1ML-5ML VIAL IV ONE (18:15)
[2020-10-27] MEDS ORDERED: dilTIAZem 25 MG/5 ML VIAL IV ONE (18:15)
[2020-10-27] MEDS ORDERED: DIGOXIN (250MCG/ML) 2 ML AMPULE IV SCH (18:45)
[2020-10-28] VITALS (106 sets, daily range): BP systolic 115–179; BP diastolic 55–96
[2020-10-28] MEDS: DIGOXIN (250MCG/ML) 2 ML AMPULE IV SCH ×2 (00:15→06:15)
[2020-10-28] MEDS ORDERED: DIGOXIN (250MCG/ML) 2 ML AMPULE ONE (00:36)
[2020-10-28 04:17] LABS: Basophils # (auto) 0 10 ^3/uL (0-0.2); Basophils % (auto) 0.7 % (0.0-2.0); Eosinophils # (auto) 0 10 ^3/uL (0-0.8); Eosinophils % (auto) 0.6 % (0.0-7.0); Hematocrit 36.5 % (41.0-53.0); Hemoglobin 12.5 g/dL (13.5-17.5); Lymphocytes # (auto) 0.6 10 ^3/uL (0.4-5.4); Lymphocytes % (auto) 15.1 % (10.0-50.0); Mean Corpuscular Hemoglobin 30.7 pg (28.0-32.0); Mean Corpuscular Hgb Conc. 34.2 g/dL (32.0-36.0); Mean Corpuscular Volume 89.9 fL (80.0-100.0); Monocytes # (auto) 0.5 10 ^3/uL (0-1.3); Monocytes % (auto) 11.7 % (0.0-12.0); Neutrophils % (auto) 71.9 % (37.0-80.0); Nucleated Red Blood Cells % 0.1 %; Platelet Count (auto) 75 10^3/uL (140-450); Red Blood Cells 4.06 10^6/uL (4.5-5.90); Red Cell Distribution Width 15.6 % (11.8-14.3); White Blood Cell 4.2 10^3/uL (4.4-10.8)
[2020-10-28 04:38] LABS: Calcium 7.5 mg/dL (8.5-10.1); Potassium 3.6 mmol/L (3.5-5.1)
[2020-10-28 04:40] LABS: BUN/Creatinine Ratio 26.5
[2020-10-28] MEDS: ACCU-CHEK COMFORT CURVE STRIP VI SCH ×4 (06:00→18:37)
[2020-10-28] MEDS: SUCRALFATE 1 GM/10 ML ORAL SUSP GT SCH ×4 (06:20→22:30)
[2020-10-28] MEDS: CLINDAMYCIN 300MG IV 50 ML IV SCH ×3 (06:20→22:30)
[2020-10-28] MEDS: PROPOFOL 100 ML IV SCH (09:12)
[2020-10-28] MEDS: cefTRIAXone 1GM/50ML D5W 50 ML IV SCH ×2 (10:00→22:30)
[2020-10-28] MEDS: FLORASTOR (S. BOULARDII) 250 MG CAP PO SCH (10:00)
[2020-10-28] MEDS: APIXABAN 5 MG TAB PO SCH ×2 (10:00→22:00)
[2020-10-28] MEDS: PANTOPRAZOLE 40 MG/10 ML VIAL INJ IV SCH ×2 (10:00→22:32)
[2020-10-28] MEDS: FLUCONAZOLE 200MG/100ML 100 ML IV SCH ×2 (10:00→11:00)
[2020-10-28] MEDS ORDERED: AMIODARONE HCL 200 MG TAB PO ONE (12:15)
[2020-10-28] MEDS ORDERED: MAGNESIUM SULFATE 1GM/100ML 100 ML IV ONE (12:15)
[2020-10-28] MEDS ORDERED: NutriHep RTU 240 mL Unflavored GT SCH (14:45)
[2020-10-28] MEDS: fentaNYL Drip 2500mCg/250mlNS 250 ML IV SCH (14:58)
[2020-10-28] MEDS: NOREPINEPHRINE 8 MG/250ML KIT 250 ML IV SCH (14:59)
[2020-10-28] MEDS: MIDAZOLAM DRIP 50 mg/50mL 50 ML IV SCH (14:59)
[2020-10-28] MEDS: FUROSEMIDE 20 MG/2 ML VIAL IV SCH (18:37)
[2020-10-28] MEDS: LORazepam 2MG/ML-1ML VIAL IV PRN (20:16)
[2020-10-28] MEDS: AMIODARONE HCL 200 MG TAB PO SCH (22:31)
[2020-10-28] MEDS: CARVEDILOL 3.125 MG TAB PO SCH (22:31)
[2020-10-29] VITALS (106 sets, daily range): BP systolic 114–151; BP diastolic 61–99
[2020-10-29] MEDS: LORazepam 2MG/ML-1ML VIAL IV PRN (03:11)
[2020-10-29 04:44] LABS: Basophils # (auto) 0 10 ^3/uL (0-0.2); Basophils % (auto) 0.4 % (0.0-2.0); Eosinophils # (auto) 0 10 ^3/uL (0-0.8); Eosinophils % (auto) 1.2 % (0.0-7.0); Hematocrit 35.4 % (41.0-53.0); Hemoglobin 12.3 g/dL (13.5-17.5); Lymphocytes # (auto) 0.5 10 ^3/uL (0.4-5.4); Lymphocytes % (auto) 13.5 % (10.0-50.0); Mean Corpuscular Hgb Conc. 34.7 g/dL (32.0-36.0); Mean Corpuscular Volume 89.5 fL (80.0-100.0); Monocytes # (auto) 0.4 10 ^3/uL (0-1.3); Monocytes % (auto) 10.6 % (0.0-12.0); Neutrophils # (auto) 2.8 10 ^3/uL (1.6-8.6); Neutrophils % (auto) 74.3 % (37.0-80.0); Platelet Count (auto) 76 10^3/uL (140-450); Red Blood Cells 3.95 10^6/uL (4.5-5.90); Red Cell Distribution Width 15.7 % (11.8-14.3); White Blood Cell 3.8 10^3/uL (4.4-10.8)
[2020-10-29 05:12] LABS: Potassium 3.3 mmol/L (3.5-5.1)
[2020-10-29 05:17] LABS: BUN/Creatinine Ratio 25.4; Calcium 7.6 mg/dL (8.5-10.1); Magnesium 1.6 mg/dL (1.6-2.6)
[2020-10-29 05:19] LABS: Bilirubin, Total 5.4 mg/dL (0.2-1.0); Total Protein 6.4 g/dL (6.4-8.2)
[2020-10-29] MEDS: ACCU-CHEK COMFORT CURVE STRIP VI SCH ×4 (05:40→18:00)
[2020-10-29] MEDS: CLINDAMYCIN 300MG IV 50 ML IV SCH ×3 (05:43→22:30)
[2020-10-29] MEDS: SUCRALFATE 1 GM/10 ML ORAL SUSP GT SCH ×4 (05:43→22:00)
[2020-10-29] MEDS: FUROSEMIDE 20 MG/2 ML VIAL IV SCH ×2 (05:43→18:27)
[2020-10-29] MEDS ORDERED: POTASSIUM CHLORIDE 20 MEQ, LIDOCAINE 1% (LOCAL ANESTH.) 2 ML in SODIUM CHL 0.9% 100 ML IV ONE (10:00)
[2020-10-29] MEDS: FLUCONAZOLE 200MG/100ML 100 ML IV SCH ×2 (10:13→12:52)
[2020-10-29] MEDS: cefTRIAXone 1GM/50ML D5W 50 ML IV SCH ×2 (10:13→22:00)
[2020-10-29] MEDS: PANTOPRAZOLE 40 MG/10 ML VIAL INJ IV SCH ×2 (10:13→22:00)
[2020-10-29] MEDS: CARVEDILOL 3.125 MG TAB PO SCH ×2 (10:15→22:00)
[2020-10-29] MEDS: APIXABAN 5 MG TAB PO SCH ×2 (10:16→22:00)
[2020-10-29] MEDS: AMIODARONE HCL 200 MG TAB PO SCH ×2 (10:16→22:00)
[2020-10-29] MEDS: FLORASTOR (S. BOULARDII) 250 MG CAP PO SCH (10:16)
[2020-10-29] MEDS: LISINOPRIL 5 MG TAB PO SCH (10:17)
[2020-10-29] MEDS: NOREPINEPHRINE 8 MG/250ML KIT 250 ML IV SCH (16:30)
[2020-10-29] MEDS: MIDAZOLAM DRIP 50 mg/50mL 50 ML IV SCH (16:45)
[2020-10-29] MEDS: PROPOFOL 100 ML IV SCH (20:27)
[2020-10-30] VITALS (106 sets, daily range): BP systolic 115–155; BP diastolic 68–99
[2020-10-30] MEDS: CLINDAMYCIN 300MG IV 50 ML IV SCH (04:31)
[2020-10-30] MEDS: ACCU-CHEK COMFORT CURVE STRIP VI SCH ×4 (04:32→18:30)
[2020-10-30] MEDS: SUCRALFATE 1 GM/10 ML ORAL SUSP GT SCH ×4 (04:32→21:07)
[2020-10-30] MEDS: FUROSEMIDE 20 MG/2 ML VIAL IV SCH ×2 (04:34→20:00)
[2020-10-30 04:38] LABS: Basophils # (auto) 0 10 ^3/uL (0-0.2); Basophils % (auto) 0.7 % (0.0-2.0); Eosinophils # (auto) 0.1 10 ^3/uL (0-0.8); Eosinophils % (auto) 1.1 % (0.0-7.0); Hemoglobin 12.9 g/dL (13.5-17.5); Lymphocytes # (auto) 0.7 10 ^3/uL (0.4-5.4); Lymphocytes % (auto) 16.3 % (10.0-50.0); Mean Corpuscular Hgb Conc. 34.8 g/dL (32.0-36.0); Mean Corpuscular Volume 89.1 fL (80.0-100.0); Monocytes # (auto) 0.4 10 ^3/uL (0-1.3); Neutrophils # (auto) 3.1 10 ^3/uL (1.6-8.6); Neutrophils % (auto) 71.9 % (37.0-80.0); Nucleated Red Blood Cells % 0.1 %; Platelet Count (auto) 115 10^3/uL (140-450); Red Blood Cells 4.16 10^6/uL (4.5-5.90); Red Cell Distribution Width 15.8 % (11.8-14.3); White Blood Cell 4.4 10^3/uL (4.4-10.8)
[2020-10-30 04:59] LABS: Potassium 3.9 mmol/L (3.5-5.1)
[2020-10-30 05:05] LABS: BUN/Creatinine Ratio 21.1; Magnesium 1.6 mg/dL (1.6-2.6)
[2020-10-30 05:08] LABS: Bilirubin, Total 5.6 mg/dL (0.2-1.0); Total Protein 6.8 g/dL (6.4-8.2)
[2020-10-30] MEDS: cefTRIAXone 1GM/50ML D5W 50 ML IV SCH (09:00)
[2020-10-30] MEDS: PANTOPRAZOLE 40 MG/10 ML VIAL INJ IV SCH ×2 (10:07→21:07)
[2020-10-30] MEDS: FLUCONAZOLE 200MG/100ML 100 ML IV SCH ×2 (10:07→11:30)
[2020-10-30] MEDS: AMIODARONE HCL 200 MG TAB PO SCH ×2 (10:08→21:07)
[2020-10-30] MEDS: CARVEDILOL 3.125 MG TAB PO SCH ×2 (10:08→21:07)
[2020-10-30] MEDS: APIXABAN 5 MG TAB PO SCH ×2 (10:09→21:08)
[2020-10-30] MEDS: FLORASTOR (S. BOULARDII) 250 MG CAP PO SCH (10:09)
[2020-10-30] MEDS: LISINOPRIL 5 MG TAB PO SCH (10:13)
[2020-10-30] MEDS ORDERED: Jevity 1.2 Cal/Fiber 1 Liter GT SCH (15:30)
[2020-10-30] MEDS ORDERED: MAGNESIUM SULFATE 1GM/100ML 100 ML IV ONE (16:15)
[2020-10-30] MEDS: NOREPINEPHRINE 8 MG/250ML KIT 250 ML IV SCH (16:30)
[2020-10-30] MEDS: MIDAZOLAM DRIP 50 mg/50mL 50 ML IV SCH (16:43)
[2020-10-30] MEDS: PROPOFOL 100 ML IV SCH (20:08)
[2020-10-30] MEDS: LORazepam 2MG/ML-1ML VIAL IV PRN (21:09)
[2020-10-31] VITALS (85 sets, daily range): BP systolic 78–144; BP diastolic 42–94
[2020-10-31] MEDS: ACCU-CHEK COMFORT CURVE STRIP VI SCH ×5 (05:00→23:36)
[2020-10-31] MEDS: SUCRALFATE 1 GM/10 ML ORAL SUSP GT SCH ×4 (05:00→22:08)
[2020-10-31 05:09] LABS: Basophils # (auto) 0 10 ^3/uL (0-0.2); Basophils % (auto) 0.8 % (0.0-2.0); Eosinophils # (auto) 0.1 10 ^3/uL (0-0.8); Eosinophils % (auto) 1.9 % (0.0-7.0); Hematocrit 35.1 % (41.0-53.0); Hemoglobin 12.3 g/dL (13.5-17.5); Lymphocytes # (auto) 0.7 10 ^3/uL (0.4-5.4); Lymphocytes % (auto) 19.8 % (10.0-50.0); Mean Corpuscular Hemoglobin 31.2 pg (28.0-32.0); Mean Corpuscular Hgb Conc. 34.9 g/dL (32.0-36.0); Mean Corpuscular Volume 89.4 fL (80.0-100.0); Monocytes # (auto) 0.4 10 ^3/uL (0-1.3); Monocytes % (auto) 9.7 % (0.0-12.0); Neutrophils # (auto) 2.5 10 ^3/uL (1.6-8.6); Neutrophils % (auto) 67.8 % (37.0-80.0); Nucleated Red Blood Cells % 0.1 %; Platelet Count (auto) 135 10^3/uL (140-450); Red Blood Cells 3.93 10^6/uL (4.5-5.90); Red Cell Distribution Width 15.8 % (11.8-14.3); White Blood Cell 3.7 10^3/uL (4.4-10.8)
[2020-10-31] MEDS: FUROSEMIDE 20 MG/2 ML VIAL IV SCH ×2 (05:10→17:45)
[2020-10-31 05:24] LABS: BUN/Creatinine Ratio 21.7; Calcium 7.7 mg/dL (8.5-10.1); Potassium 3.6 mmol/L (3.5-5.1)
[2020-10-31] MEDS ORDERED: MAGNESIUM SULFATE 1GM/100ML 100 ML IV ONE (10:30)
[2020-10-31] MEDS ORDERED: POTASSIUM CHLORIDE 40 MEQ, LIDOCAINE 1% (LOCAL ANESTH.) 4 ML in SODIUM CHL 0.9% 250 ML IV ONE (10:30)
[2020-10-31] MEDS: FLUCONAZOLE 200MG/100ML 100 ML IV SCH ×2 (10:39→11:54)
[2020-10-31] MEDS: PANTOPRAZOLE 40 MG/10 ML VIAL INJ IV SCH ×2 (10:39→22:08)
[2020-10-31] MEDS: CARVEDILOL 3.125 MG TAB PO SCH ×2 (10:40→22:09)
[2020-10-31] MEDS: AMIODARONE HCL 200 MG TAB PO SCH ×2 (10:40→22:09)
[2020-10-31] MEDS: FLORASTOR (S. BOULARDII) 250 MG CAP PO SCH (10:41)
[2020-10-31] MEDS: APIXABAN 5 MG TAB PO SCH ×2 (10:41→22:09)
[2020-10-31] MEDS: LISINOPRIL 10 MG TAB PO SCH (10:41)
[2020-10-31] MEDS: MIDAZOLAM DRIP 50 mg/50mL 50 ML IV SCH (16:30)
[2020-10-31] MEDS: NOREPINEPHRINE 8 MG/250ML KIT 250 ML IV SCH (16:30)
[2020-10-31] MEDS: PROPOFOL 100 ML IV SCH (19:49)
[2020-11-01] VITALS (19 sets, daily range): BP systolic 116–148; BP diastolic 75–102
[2020-11-01 04:38] LABS: Basophils # (auto) 0 10 ^3/uL (0-0.2); Basophils % (auto) 0.8 % (0.0-2.0); Eosinophils # (auto) 0.1 10 ^3/uL (0-0.8); Eosinophils % (auto) 1.1 % (0.0-7.0); Hematocrit 35.6 % (41.0-53.0); Hemoglobin 12.5 g/dL (13.5-17.5); Lymphocytes # (auto) 0.8 10 ^3/uL (0.4-5.4); Lymphocytes % (auto) 14.1 % (10.0-50.0); Mean Corpuscular Hemoglobin 31.4 pg (28.0-32.0); Mean Corpuscular Volume 89.7 fL (80.0-100.0); Monocytes # (auto) 0.5 10 ^3/uL (0-1.3); Monocytes % (auto) 9.2 % (0.0-12.0); Neutrophils # (auto) 4.2 10 ^3/uL (1.6-8.6); Neutrophils % (auto) 74.8 % (37.0-80.0); Nucleated Red Blood Cells % 0.1 %; Platelet Count (auto) 96 10^3/uL (140-450); Red Blood Cells 3.97 10^6/uL (4.5-5.90); Red Cell Distribution Width 15.8 % (11.8-14.3); White Blood Cell 5.6 10^3/uL (4.4-10.8)
[2020-11-01 04:55] LABS: Magnesium 1.7 mg/dL (1.6-2.6)
[2020-11-01 04:57] LABS: BUN/Creatinine Ratio 20.3
[2020-11-01] MEDS ORDERED: POTASSIUM CHL 20MEQ/100ML 100 ML IV ONE ×3 (06:10→11:30)
[2020-11-01] MEDS ORDERED: MAGNESIUM SULFATE 1GM/100ML 100 ML IV ONE (06:10)
[2020-11-01] MEDS: ACCU-CHEK COMFORT CURVE STRIP VI SCH ×2 (06:12→12:00)
[2020-11-01] MEDS: FUROSEMIDE 20 MG/2 ML VIAL IV SCH ×2 (06:13→17:55)
[2020-11-01] MEDS: SUCRALFATE 1 GM/10 ML ORAL SUSP GT SCH ×4 (06:13→22:13)
[2020-11-01] MEDS: MAGNESIUM SULFATE 1GM/100ML 100 ML IV SCH ×2 (09:14→10:30)
[2020-11-01] MEDS: APIXABAN 5 MG TAB PO SCH ×2 (10:30→22:28)
[2020-11-01] MEDS: LISINOPRIL 10 MG TAB PO SCH (10:30)
[2020-11-01] MEDS: AMIODARONE HCL 200 MG TAB PO SCH ×2 (10:30→22:13)
[2020-11-01] MEDS: PANTOPRAZOLE 40 MG/10 ML VIAL INJ IV SCH ×2 (10:30→22:12)
[2020-11-01] MEDS: FLORASTOR (S. BOULARDII) 250 MG CAP PO SCH (10:30)
[2020-11-01] MEDS: CARVEDILOL 3.125 MG TAB PO SCH ×2 (10:30→22:29)
[2020-11-01] MEDS: FLUCONAZOLE 200MG/100ML 100 ML IV SCH ×2 (10:40→12:33)
[2020-11-01] MEDS ORDERED: POTASSIUM EFFERVESENT TAB 25 MEQ GT ONE (11:30)
[2020-11-02 05:00] VITALS: BP 137/82
[2020-11-02] MEDS: FUROSEMIDE 20 MG/2 ML VIAL IV SCH ×2 (05:42→18:43)
[2020-11-02] MEDS: SUCRALFATE 1 GM/10 ML ORAL SUSP GT SCH ×4 (06:29→22:12)
[2020-11-02 06:54] LABS: Basophils # (auto) 0 10 ^3/uL (0-0.2); Basophils % (auto) 0.7 % (0.0-2.0); Eosinophils # (auto) 0 10 ^3/uL (0-0.8); Eosinophils % (auto) 0.7 % (0.0-7.0); Hematocrit 34.9 % (41.0-53.0); Hemoglobin 12.1 g/dL (13.5-17.5); Lymphocytes # (auto) 0.8 10 ^3/uL (0.4-5.4); Lymphocytes % (auto) 13.6 % (10.0-50.0); Mean Corpuscular Hemoglobin 31.1 pg (28.0-32.0); Mean Corpuscular Hgb Conc. 34.8 g/dL (32.0-36.0); Mean Corpuscular Volume 89.5 fL (80.0-100.0); Monocytes # (auto) 0.6 10 ^3/uL (0-1.3); Monocytes % (auto) 9.4 % (0.0-12.0); Neutrophils # (auto) 4.5 10 ^3/uL (1.6-8.6); Neutrophils % (auto) 75.6 % (37.0-80.0); Platelet Count (auto) 105 10^3/uL (140-450); Red Cell Distribution Width 15.6 % (11.8-14.3); White Blood Cell 5.9 10^3/uL (4.4-10.8)
[2020-11-02 07:09] LABS: BUN/Creatinine Ratio 19.4; Calcium 7.8 mg/dL (8.5-10.1)
[2020-11-02 09:00] VITALS: BP 144/74
[2020-11-02] MEDS: CARVEDILOL 3.125 MG TAB PO SCH ×2 (10:02→22:00)
[2020-11-02] MEDS: AMIODARONE HCL 200 MG TAB PO SCH ×2 (10:03→22:12)
[2020-11-02] MEDS: APIXABAN 5 MG TAB PO SCH ×2 (10:03→22:12)
[2020-11-02] MEDS: LISINOPRIL 10 MG TAB PO SCH (10:04)
[2020-11-02] MEDS: FLORASTOR (S. BOULARDII) 250 MG CAP PO SCH (10:04)
[2020-11-02] MEDS: FLUCONAZOLE 200MG/100ML 100 ML IV SCH ×2 (10:05→11:00)
[2020-11-02] MEDS: PANTOPRAZOLE 40 MG/10 ML VIAL INJ IV SCH ×2 (10:05→22:12)
[2020-11-02] MEDS: POTASSIUM CHL 20MEQ/100ML 100 ML IV SCH ×2 (12:30→15:11)
[2020-11-02 13:00] VITALS: BP 124/77
[2020-11-02] MEDS ORDERED: POTASSIUM CHL 20MEQ/100ML 100 ML IV SCH (17:00)
[2020-11-02 17:19] VITALS: BP 120/83
[2020-11-02] MEDS ORDERED: RIV15T PO (17:54)
[2020-11-02 22:00] VITALS: BP 100/50
[2020-11-03 06:15] LABS: Basophils # (auto) 0.1 10 ^3/uL (0-0.2); Basophils % (auto) 1.3 % (0.0-2.0); Eosinophils # (auto) 0 10 ^3/uL (0-0.8); Eosinophils % (auto) 0.9 % (0.0-7.0); Hematocrit 34.5 % (41.0-53.0); Lymphocytes % (auto) 16.9 % (10.0-50.0); Mean Corpuscular Hemoglobin 31.1 pg (28.0-32.0); Mean Corpuscular Hgb Conc. 34.8 g/dL (32.0-36.0); Mean Corpuscular Volume 89.3 fL (80.0-100.0); Monocytes # (auto) 0.5 10 ^3/uL (0-1.3); Neutrophils # (auto) 4.1 10 ^3/uL (1.6-8.6); Neutrophils % (auto) 71.9 % (37.0-80.0); Nucleated Red Blood Cells % 0.1 %; Platelet Count (auto) 117 10^3/uL (140-450); Red Blood Cells 3.86 10^6/uL (4.5-5.90); Red Cell Distribution Width 15.7 % (11.8-14.3); White Blood Cell 5.7 10^3/uL (4.4-10.8)
[2020-11-03] MEDS: FUROSEMIDE 20 MG/2 ML VIAL IV SCH (06:28)
[2020-11-03] MEDS: SUCRALFATE 1 GM/10 ML ORAL SUSP GT SCH ×3 (06:38→17:00)
[2020-11-03 06:39] LABS: BUN/Creatinine Ratio 15.5; Calcium 7.9 mg/dL (8.5-10.1); Potassium 3.1 mmol/L (3.5-5.1)
[2020-11-03 08:00] VITALS: BP 118/51
[2020-11-03] MEDS ORDERED: POTASSIUM EFFERVESENT TAB 25 MEQ GT SCH (10:00)
[2020-11-03] MEDS: FLORASTOR (S. BOULARDII) 250 MG CAP PO SCH (10:39)
[2020-11-03] MEDS: AMIODARONE HCL 200 MG TAB PO SCH (10:40)
[2020-11-03] MEDS: APIXABAN 5 MG TAB PO SCH (10:40)
[2020-11-03] MEDS: CARVEDILOL 3.125 MG TAB PO SCH (10:40)
[2020-11-03] MEDS: LISINOPRIL 10 MG TAB PO SCH (10:40)
[2020-11-03] MEDS: FLUCONAZOLE 200MG/100ML 100 ML IV SCH ×2 (10:41→11:44)
[2020-11-03] MEDS: PANTOPRAZOLE 40 MG/10 ML VIAL INJ IV SCH (10:41)
[2020-11-03] MEDS ORDERED: APIX5TAB PO (12:03)
[2020-11-03] MEDS ORDERED: LISI-716 PO (12:03)
[2020-11-03] MEDS ORDERED: FURO1TAB33 PO (12:03)
[2020-11-03] MEDS ORDERED: CAR3125T PO (12:03)
[2020-11-03 13:00] VITALS: BP 129/88
[2020-11-03 14:00] VITALS: BP 115/89
== END 2020-11-03 17:50 | disposition home health service (06) | DRG 870 ==
LOC: ER 04:57 → TELE 11:02 → ICU WEST 18:42 → TELE-CENTR 11-02 00:07
PROVIDERS: ADMIT Nurse Practitioner Acute Care; ATTEND Internal Medicine Pulmonary Disease
PROC: 0BH17EZ Insertion of Endotracheal Airway into Trachea, Via Natural or Artificial Opening (ICD-10-PCS; principal; 2020-10-17)
PROC: 5A1955Z Respiratory Ventilation, Greater than 96 Consecutive Hours (ICD-10-PCS; 2020-10-17)
DX: A41.9 Sepsis, unspecified organism (principal); G93.41 Metabolic encephalopathy; J96.01 Acute respiratory failure with hypoxia; J96.02 Acute respiratory failure with hypercapnia; R65.21 Severe sepsis with septic shock; J15.0 Pneumonia due to Klebsiella pneumoniae; I50.43 Acute on chronic combined systolic (congestive) and diastolic (congestive) heart failure; E44.0 Moderate protein-calorie malnutrition; L03.115 Cellulitis of right lower limb; K76.6 Portal hypertension; I82.411 Acute embolism and thrombosis of right femoral vein; I47.1 Supraventricular tachycardia; I42.9 Cardiomyopathy, unspecified; I13.0 Hypertensive heart and chronic kidney disease with heart failure and stage 1 through stage 4 chronic kidney disease, or unspecified chronic kidney disease; Z20.822 Contact with and (suspected) exposure to COVID-19; F17.210 Nicotine dependence, cigarettes, uncomplicated; D69.6 Thrombocytopenia, unspecified; K74.60 Unspecified cirrhosis of liver; B19.20 Unspecified viral hepatitis C without hepatic coma; F10.20 Alcohol dependence, uncomplicated; E66.9 Obesity, unspecified; J44.9 Chronic obstructive pulmonary disease, unspecified; Z79.899 Other long term (current) drug therapy; Z68.38 Body mass index [BMI] 38.0-38.9, adult
CPT/HCPCS: 31500; 36415; 36556; 36600; 71045; 71275; 73590; 76705; 80048; 80053; 80307; 80320; 81001; 82140; 82805; 82962; 83605; 83615; 83735; 83880; 84100; 84443; 84484; 85007; 85025; 85027; 85049; 85610; 85652; 85730; 86141; 87040; 87070; 87077; 87081; 87186; 87205; 87426; 93005; 93306; 93970; 94002; 94003; 94640; 96365; 96367; 97110; 97116; 97163; 97530; 99291; C9113; G0378; J0330; J0696; J1450; J2001; J2250; J2704; J3480; J3490; J7060

== ENCOUNTER 2023-10-11 00:15 | Inpatient (IN) | payer MEDICAID ==
[2023-10-11] VITALS (7 sets, daily range): BP systolic 100–152; BP diastolic 55–116; PULSE 81–98; RESP 17–24; O2SAT 92–100
[~2023-10-11] VITALS: Ht 185.4 cm; Wt 151.0 kg
[~2023-10-11 00:15] MED LIST: APIX5TAB PO; CARV-214 PO; FURO1TAB33 PO; LISI10TA34 PO
[2023-10-11 01:18] LABS: Basophils # (auto) 0 10 ^3/uL (0-0.2); Basophils % (auto) 0.6 % (0.0-2.0); Eosinophils # (auto) 0 10 ^3/uL (0-0.8); Eosinophils % (auto) 0.4 % (0.0-7.0); Hematocrit 42.7 % (41.0-53.0); Hemoglobin 14.2 g/dL (13.5-17.5); Lymphocytes # (auto) 0.9 10 ^3/uL (0.4-5.4); Lymphocytes % (auto) 12.6 % (10.0-50.0); Mean Corpuscular Hemoglobin 30.8 pg (28.0-32.0); Mean Corpuscular Hgb Conc. 33.3 g/dL (32.0-36.0); Mean Corpuscular Volume 92.7 fL (80.0-100.0); Monocytes % (auto) 14.7 % (0.0-12.0); Neutrophils # (auto) 4.8 10 ^3/uL (1.6-8.6); Neutrophils % (auto) 71.7 % (37.0-80.0); Nucleated Red Blood Cells % 0.1 %; Red Blood Cells 4.61 10^6/uL (4.5-5.90); Red Cell Distribution Width 15.7 % (11.8-14.3); White Blood Cell 6.7 10^3/uL (4.4-10.8)
[2023-10-11 01:34] LABS: Alanine Aminotransferase 38 U/L (7-40); Albumin 3.6 g/dL (3.2-4.8); Alkaline Phosphatase 76 U/L (46-116); Anion Gap 7 (5-15); Aspartate Aminotransferase 53 U/L (13-40); BUN/Creatinine Ratio 11.2 (10.0-20.0); Bilirubin, Total 4.3 mg/dL (0.2-1.0); Blood Urea Nitrogen 19 mg/dL (9-23); Calcium 9.2 mg/dL (8.7-10.4); Carbon Dioxide 28 mmol/L (20-30); Chloride 104 mmol/L (98-107); Glucose 96 mg/dL (74-106); Sodium 139 mmol/L (136-145); Total Protein 7.6 g/dL (5.7-8.2)
[2023-10-11 01:36] LABS: INR 1.43 (0.9-1.15); Partial Thromboplastin Time 30.4 SEC (24.5-34.5); Prothrombin Time 14.8 sec (9.3-11.8)
[2023-10-11] MEDS: FUROSEMIDE 100 MG/10ML VIAL IV ONE (02:30)
[2023-10-11] MEDS: NITROGLYCERIN 0.4MG/HR TOPICAL PATCH TD ONE (02:30)
[2023-10-11] MEDS: ASPirin 325 MG TAB PO ONE (02:30)
[2023-10-11] MEDS ORDERED: HYDROcodone-ACET 5/325MG TAB PO PRN (05:00)
[2023-10-11] MEDS ORDERED: hydrALAZINE HCL 20 MG/ML VL IV PRN (05:00)
[2023-10-11] MEDS ORDERED: DOCUSATE SOD 100 MG CAP PO PRN (05:00)
[2023-10-11] MEDS ORDERED: ONDANSETRON HCL 4 MG/2 ML VIAL IV PRN (05:00)
[2023-10-11 05:44] LABS: Alanine Aminotransferase 37 U/L (7-40); Albumin 3.6 g/dL (3.2-4.8); Alkaline Phosphatase 78 U/L (46-116); Anion Gap 9 (5-15); Aspartate Aminotransferase 50 U/L (13-40); BUN/Creatinine Ratio 12.6 (10.0-20.0); Bilirubin, Total 4.3 mg/dL (0.2-1.0); Blood Urea Nitrogen 21 mg/dL (9-23); Carbon Dioxide 27 mmol/L (20-30); Chloride 104 mmol/L (98-107); Glucose 142 mg/dL (74-106); Potassium 3.6 mmol/L (3.5-5.1); Sodium 140 mmol/L (136-145); Total Protein 7.4 g/dL (5.7-8.2)
[2023-10-11] MEDS: SODIUM CHLOR 0.9% PF (SALINE LOCK) 10ML VIAL/SYR IV SCH (06:00)
[2023-10-11 06:03] LABS: Basophils # (auto) 0.1 10 ^3/uL (0-0.2); Basophils % (auto) 0.9 % (0.0-2.0); Eosinophils # (auto) 0 10 ^3/uL (0-0.8); Eosinophils % (auto) 0.4 % (0.0-7.0); Hematocrit 42.2 % (41.0-53.0); Lymphocytes % (auto) 17.8 % (10.0-50.0); Mean Corpuscular Hemoglobin 30.5 pg (28.0-32.0); Mean Corpuscular Hgb Conc. 33.2 g/dL (32.0-36.0); Mean Corpuscular Volume 91.8 fL (80.0-100.0); Monocytes # (auto) 0.8 10 ^3/uL (0-1.3); Monocytes % (auto) 14.4 % (0.0-12.0); Neutrophils # (auto) 3.8 10 ^3/uL (1.6-8.6); Neutrophils % (auto) 66.5 % (37.0-80.0); Nucleated Red Blood Cells % 0.1 %; Red Cell Distribution Width 15.7 % (11.8-14.3); White Blood Cell 5.7 10^3/uL (4.4-10.8)
[2023-10-11] MEDS ORDERED: MORPHINE SULFATE INJ 2 MG/ml SYRG IV PRN (06:45)
[2023-10-11] MEDS ORDERED: NITROGLYCERIN 0.4 MG SL TAB SL PRN (06:45)
[2023-10-11] MEDS: IPRATROPIUM BROM 0.5 MG/2.5ML INH SOL NEB ONE (07:33)
[2023-10-11] MEDS: ALBUTEROL SULF 2.5 MG/0.5ML(0.5%) NEB SOLN NEB ONE (07:33)
[2023-10-11 08:11] LABS: Urine Bacteria None Seen /hpf (None Seen)
[2023-10-11 08:33] LABS: Amphetamine Screen, Urine Pos (NEGATIVE); Barbiturate Scree,Urine Neg (NEGATIVE); Benzodiazephine Screen, Urine Neg (NEGATIVE); Cannabinoid Screen, Urine Pos (NEGATIVE); Cocaine Screen, Urine Neg (NEGATIVE); Opiate Scree,Urine Neg (NEGATIVE); Phencyclidine Screen, Urine Neg (NEGATIVE)
[2023-10-11 08:42] LABS: Urine Blood 1+ /uL (Negative); Urine Clarity Clear (Clear); Urine Color Yellow (Yellow); Urine Hyaline Cast FEW /lpf (0 - 2); Urine Mucus FEW (None Seen); Urine Protein, UAD 1+ (Negative); Urine Specific Gravity 1.018 (1.001-1.035); Urine Urobilinogen Normal (Negative); Urine WBC 2 /hpf (0 - 3); Urine pH 5.5 (5.0-9.0)
[2023-10-11] MEDS: LORazepam 2MG/ML-1ML VIAL IV PRN (08:43)
[2023-10-11] MEDS: FUROSEMIDE 40 MG/4 ML VIAL IV SCH (10:43)
[2023-10-11] MEDS: CARVEDILOL 3.125 MG TAB PO SCH (10:44)
[2023-10-11] MEDS: APIXABAN 5 MG TAB PO SCH (10:44)
[2023-10-11] MEDS: LORazepam 2MG/ML-1ML VIAL IV ONE (13:16)
[2023-10-11] MEDS: FUROSEMIDE 40 MG/4 ML VIAL IV ONE ×2 (13:16→13:32)
[2023-10-11] MEDS: ROCURONIUM 10MG/ML 10ML VIAL IV ONE ×2 (13:50→14:17)
[2023-10-11] MEDS: ETOMIDATE (2MG/ML) 20ML VIAL IV ONE ×2 (13:50→14:18)
[2023-10-11] MEDS: DOPamine 1600MCG/ML D5W 250 ML IV SCH (14:00)
[2023-10-11] MEDS ORDERED: HEPARIN SODIUM (PORCINE) 5000 UNITS/ML 1ML VIAL IV ONE (14:00)
[2023-10-11 14:07] LABS: Base Excess -4.5 mmol/L (-2.0-2.0)
[2023-10-11] MEDS: MIDAZOLAM DRIP 50 mg/50mL 50 ML IV SCH ×2 (14:15→17:00)
[2023-10-11] MEDS: MIDAZOLAM DRIP 50 mg/50mL 50 ML IV ONE (14:17)
[2023-10-11] MEDS: MAGNESIUM SULFATE 1GM/100ML 100 ML IV ONE (14:35)
[2023-10-11] MEDS: HEPARIN DRIP/D5W 100UNITS/ML 250 ML IV SCH (15:00)
[2023-10-11] MEDS: methylPREDNISolone SOD SUCC 125 MG/2 ML VL IV ONE (15:49)
[2023-10-11] MEDS: methylPREDNISolone SOD SUCC 40 MG/ML VL IV SCH (15:49)
[2023-10-11 16:09] LABS: Lipase 23 U/L (12-53)
[2023-10-11 16:11] LABS: Amylase 46 U/L (30-118)
[2023-10-11 16:25] LABS: INR 1.65 (0.9-1.15); Partial Thromboplastin Time 61.8 SEC (24.5-34.5); Prothrombin Time 16.9 sec (9.3-11.8)
[2023-10-11 18:08] LABS: Base Excess 1.1 mmol/L (-2.0-2.0)
[2023-10-11 18:36] LABS: Rapid Influenza A Negative (Negative)
[2023-10-11 18:40] LABS: Rapid Influenza B Positive (Negative)
[2023-10-11] MEDS: fentaNYL Drip 2500mCg/250mlNS 250 ML IV SCH (19:30)
[2023-10-11] MEDS: PANTOPRAZOLE 40mg/50ML NS AE 50 ML IV SCH (20:00)
[2023-10-11 21:02] LABS: Base Excess -3.6 mmol/L (-2.0-2.0)
[2023-10-11] MEDS: PANTOPRAZOLE 80 MG in SODIUM CHL 0.9% 100 ML IV ONE (21:43)
[2023-10-11] MEDS: PANTOPRAZOLE 40 MG/10 ML VIAL INJ IV ONE (21:43)
[2023-10-11] MEDS: OSELTAMIVIR 75MG/5ML ORAL SUSP GT SCH (22:00)
[2023-10-11 22:33] LABS: INR 1.48 (0.9-1.15); Partial Thromboplastin Time 34.9 SEC (24.5-34.5); Prothrombin Time 15.2 sec (9.3-11.8)
[2023-10-12] VITALS (70 sets, daily range): BP systolic 39–123; BP diastolic 10–86; PULSE 68–119; RESP 17–32; TEMP 99.1–100.6; O2SAT 35–100
[2023-10-12] MEDS: ACETAMINOPHEN 650 MG RECT SUPP PR PRN (01:35)
[2023-10-12 06:30] LABS: Basophils # (auto) 0 10 ^3/uL (0-0.2); Basophils % (auto) 0.2 % (0.0-2.0); Eosinophils # (auto) 0 10 ^3/uL (0-0.8); Hematocrit 47.8 % (41.0-53.0); Hemoglobin 16.2 g/dL (13.5-17.5); Lymphocytes # (auto) 0.7 10 ^3/uL (0.4-5.4); Mean Corpuscular Hemoglobin 31.3 pg (28.0-32.0); Mean Corpuscular Hgb Conc. 33.8 g/dL (32.0-36.0); Mean Corpuscular Volume 92.4 fL (80.0-100.0); Monocytes # (auto) 0.9 10 ^3/uL (0-1.3); Monocytes % (auto) 11.8 % (0.0-12.0); Neutrophils # (auto) 5.8 10 ^3/uL (1.6-8.6); Nucleated Red Blood Cells % 0.1 %; Red Blood Cells 5.17 10^6/uL (4.5-5.90); Red Cell Distribution Width 15.8 % (11.8-14.3); White Blood Cell 7.4 10^3/uL (4.4-10.8)
[2023-10-12 06:48] LABS: Albumin 3.6 g/dL (3.2-4.8); Alkaline Phosphatase 76 U/L (46-116); Anion Gap 11 (5-15); Aspartate Aminotransferase 51 U/L (13-40); BUN/Creatinine Ratio 12.1 (10.0-20.0); Calcium 8.9 mg/dL (8.7-10.4); Carbon Dioxide 25 mmol/L (20-30); Chloride 102 mmol/L (98-107); Glucose 140 mg/dL (74-106); Potassium 4.7 mmol/L (3.5-5.1); Sodium 138 mmol/L (136-145)
[2023-10-12 06:49] LABS: Bilirubin, Total 4.6 mg/dL (0.2-1.0); Total Protein 7.9 g/dL (5.7-8.2)
[2023-10-12 06:59] LABS: Blood Urea Nitrogen 31 mg/dL (9-23)
[2023-10-12] MEDS: IOHEXOL 350 MG/ML 100ML IJ ONE (07:00)
[2023-10-12 07:21] LABS: Alanine Aminotransferase 39 U/L (7-40)
[2023-10-12 08:18] LABS: Base Excess -2.6 mmol/L (-2.0-2.0)
[2023-10-12] MEDS: NOREPINEPHRINE 8 MG/250ML KIT 250 ML IV ONE (09:47)
[2023-10-12] MEDS: cefTRIAXone 1GM/50ML D5W 50 ML IV SCH (09:52)
[2023-10-12] MEDS: NOREPINEPHRINE 8 MG/250ML KIT 250 ML IV SCH (10:00)
[2023-10-12] MEDS ORDERED: ENOXAPARIN SOD 40 MG/0.4 ML SYRINGE SC SCH (10:00)
[2023-10-12] MEDS: LACTULOSE 20Gm/30ML SOLN NG ONE (10:05)
[2023-10-12] MEDS: methylPREDNISolone SOD SUCC 40 MG/ML VL IV SCH (10:05)
[2023-10-12] MEDS: DOPamine 3200MCG/ML 250 ML IV SCH (10:15)
[2023-10-12] MEDS: NOREPINEPHRINE BITARTRATE 32 MG in SODIUM CHL 0.9% 218 ML IV SCH (10:15)
[2023-10-12] MEDS: LINEZOLID 600MG/300ML 300 ML IV ONE (10:39)
[2023-10-12] MEDS: LINEZOLID 600MG/300ML 300 ML IV SCH (10:39)
[2023-10-12] MEDS: PROPOFOL 100 ML IV SCH (10:54)
[2023-10-12] MEDS: ACETAMINOPHEN 325 MG TAB PO PRN (11:11)
[2023-10-12] MEDS: BUMETANIDE INJECTION 25 MG in GIVE UN-DILUTED 0 ML IV SCH (11:35)
[2023-10-12] MEDS: ROCURONIUM 10MG/ML 10ML VIAL IV ONE (12:08)
[2023-10-12] MEDS ORDERED: ROCURONIUM 10MG/ML 10ML VIAL IV PRN (12:15)
[2023-10-12] MEDS: AZITHROMYCIN 500MG/ 250ML 250 ML IV SCH (12:40)
[2023-10-12 13:55] LABS: Base Excess -7.6 mmol/L (-2.0-2.0)
[2023-10-12] MEDS: PHENYLEPHRINE INJ 80 MG in SODIUM CHL 0.9% 242 ML IV SCH (14:15)
[2023-10-12 17:01] LABS: Urine Bacteria FEW /hpf (None Seen); Urine Blood 2+ /uL (Negative); Urine Clarity Turbid (Clear); Urine Color Yellow (Yellow); Urine Hyaline Cast FEW /lpf (0 - 2); Urine Mucus FEW (None Seen); Urine Protein, UAD 1+ (Negative); Urine Specific Gravity 1.044 (1.001-1.035); Urine Urobilinogen Normal (Negative); Urine WBC 35 /hpf (0 - 3); Urine pH 5.5 (5.0-9.0)
[2023-10-12 17:08] LABS: Protein, Urine 60.9 mg/dL (0.0-11.9)
[2023-10-12 17:11] LABS: Creatinine, Urine 115.96 mg/dL (30.0-125.0)
[2023-10-12] MEDS: PANTOPRAZOLE 40 MG/10 ML VIAL INJ IV SCH (21:38)
[2023-10-12] MEDS: EPINEPHrine HCL 250 ML IV ONE (22:41)
[2023-10-12] MEDS: EPINEPHrine HCL 250 ML IV SCH (22:50)
[2023-10-12] MEDS: DOBUTamine 1000MCG/ML 250 ML IV SCH (22:50)
[2023-10-12] MEDS: DOBUTamine 1000MCG/ML 250 ML IV ONE (22:54)
[2023-10-12 22:56] LABS: Base Excess -12.3 mmol/L (-2.0-2.0)
[2023-10-12] MEDS ORDERED: DOBUTamine 1000MCG/ML 250 ML IV SCH (23:30)
[2023-10-12 23:58] LABS: Basophils # (auto) 0 10 ^3/uL (0-0.2); Basophils % (auto) 0.2 % (0.0-2.0); Eosinophils # (auto) 0 10 ^3/uL (0-0.8); Eosinophils % (auto) 0.2 % (0.0-7.0); Hematocrit 49.2 % (41.0-53.0); Hemoglobin 15.9 g/dL (13.5-17.5); Lymphocytes # (auto) 1.1 10 ^3/uL (0.4-5.4); Lymphocytes % (auto) 7.2 % (10.0-50.0); Mean Corpuscular Hgb Conc. 32.3 g/dL (32.0-36.0); Mean Corpuscular Volume 96.1 fL (80.0-100.0); Monocytes # (auto) 2.3 10 ^3/uL (0-1.3); Monocytes % (auto) 15.1 % (0.0-12.0); Neutrophils # (auto) 11.6 10 ^3/uL (1.6-8.6); Neutrophils % (auto) 77.3 % (37.0-80.0); Nucleated Red Blood Cells % 0.5 %; Red Blood Cells 5.12 10^6/uL (4.5-5.90); Red Cell Distribution Width 16.5 % (11.8-14.3); White Blood Cell 15.1 10^3/uL (4.4-10.8)
[2023-10-13] VITALS (100 sets, daily range): BP systolic 55–164; BP diastolic 14–72; PULSE 53–114; RESP 13–28; TEMP 97.3–100.6; O2SAT 57–86
[2023-10-13 00:07] LABS: Alanine Aminotransferase 246 U/L (7-40); Albumin 3.3 g/dL (3.2-4.8); Alkaline Phosphatase 67 U/L (46-116); Anion Gap 15 (5-15); Aspartate Aminotransferase 583 U/L (13-40); BUN/Creatinine Ratio 11.1 (10.0-20.0); Blood Urea Nitrogen 36 mg/dL (9-23); Calcium 8.7 mg/dL (8.7-10.4); Carbon Dioxide 19 mmol/L (20-30); Chloride 101 mmol/L (98-107); Glucose 83 mg/dL (74-106); Magnesium 2.2 mg/dL (1.6-2.6); Phosphorus 10.5 mg/dL (2.4-5.1); Sodium 135 mmol/L (136-145)
[2023-10-13 00:08] LABS: Bilirubin, Total 3.7 mg/dL (0.2-1.0); Total Protein 7.4 g/dL (5.7-8.2)
[2023-10-13 00:21] LABS: Potassium 6.4 mmol/L (3.5-5.1)
[2023-10-13] MEDS: ALBUTEROL SULF 2.5 MG/0.5ML(0.5%) NEB SOLN ONE (00:44)
[2023-10-13] MEDS: ALBUTEROL SULF 2.5 MG/0.5ML(0.5%) NEB SOLN NEB ONE ×2 (00:45→09:45)
[2023-10-13] MEDS: DEXTROSE 50% SYRINGE 50 ML IV ONE (00:56)
[2023-10-13] MEDS: CALCIUM GLUC 1,000mg/50ml-NS 50 ML IV ONE ×4 (00:56→10:43)
[2023-10-13] MEDS: SODIUM BICARB 8.4% 50Meq/50ml SYR Vial IV ONE ×2 (00:57→08:23)
[2023-10-13] MEDS: SODIUM BICARB 8.4% 50Meq/50ml SYR INJ IV ONE ×2 (01:54→10:59)
[2023-10-13] MEDS: DEXTROSE (50%) 50ML SYRG IV ONE ×2 (01:54→11:04)
[2023-10-13] MEDS: InsuLIN REG 1unit/0.01ml Soln (100units/ml) IV ONE ×2 (01:55→11:05)
[2023-10-13] MEDS: DOPamine 1600MCG/ML D5W 250 ML IV SCH (03:10)
[2023-10-13 04:19] LABS: Basophils # (auto) 0.1 10 ^3/uL (0-0.2); Basophils % (auto) 0.3 % (0.0-2.0); Eosinophils # (auto) 0 10 ^3/uL (0-0.8); Hematocrit 50.4 % (41.0-53.0); Hemoglobin 15.8 g/dL (13.5-17.5); Lymphocytes # (auto) 0.8 10 ^3/uL (0.4-5.4); Lymphocytes % (auto) 5.5 % (10.0-50.0); Mean Corpuscular Hemoglobin 30.7 pg (28.0-32.0); Mean Corpuscular Hgb Conc. 31.4 g/dL (32.0-36.0); Mean Corpuscular Volume 97.6 fL (80.0-100.0); Monocytes # (auto) 1.9 10 ^3/uL (0-1.3); Monocytes % (auto) 12.7 % (0.0-12.0); Neutrophils # (auto) 12.4 10 ^3/uL (1.6-8.6); Neutrophils % (auto) 81.5 % (37.0-80.0); Nucleated Red Blood Cells % 0.1 %; Red Blood Cells 5.17 10^6/uL (4.5-5.90); Red Cell Distribution Width 17.5 % (11.8-14.3); White Blood Cell 15.3 10^3/uL (4.4-10.8)
[2023-10-13 05:24] LABS: Albumin 3.3 g/dL (3.2-4.8); Alkaline Phosphatase 72 U/L (46-116); Anion Gap 19 (5-15); BUN/Creatinine Ratio 9.9 (10.0-20.0); Bilirubin, Total 4.6 mg/dL (0.2-1.0); Blood Urea Nitrogen 36 mg/dL (9-23); Calcium 8.5 mg/dL (8.5-10.1); Carbon Dioxide 13 mmol/L (20-30); Chloride 100 mmol/L (98-107); Glucose 135 mg/dL (74-106); Sodium 132 mmol/L (136-145); Total Protein 7.3 g/dL (5.7-8.2)
[2023-10-13 05:28] LABS: Potassium 6.3 mmol/L (3.5-5.1)
[2023-10-13 05:38] LABS: Alanine Aminotransferase 1393 U/L (7-40); Aspartate Aminotransferase 3892 U/L (13-40)
[2023-10-13 07:33] LABS: Base Excess -12.3 mmol/L (-2.0-2.0)
[2023-10-13] MEDS ORDERED: VANCOMYCIN PER PHARMACY 0 MG IV SCH (11:45)
[2023-10-13 11:50] LABS: Hematocrit 45.4 % (41.0-53.0); Hemoglobin 14.7 g/dL (13.5-17.5); Mean Corpuscular Hemoglobin 30.6 pg (28.0-32.0); Mean Corpuscular Hgb Conc. 32.4 g/dL (32.0-36.0); Mean Corpuscular Volume 94.7 fL (80.0-100.0); White Blood Cell 14.1 10^3/uL (4.4-10.8)
[2023-10-13 11:55] LABS: Basophils % (manual) 0 (0.0-2.0); Blast Cells 0; Eosinophils % (manual) 0 (0-7); Metamyelocytes % 0; Myelocytes % 0; Promyelocytes % 0; Reactive Lymphocytes 0
[2023-10-13 11:59] LABS: Albumin 3.1 g/dL (3.2-4.8); Alkaline Phosphatase 69 U/L (46-116); Anion Gap 13 (5-15); BUN/Creatinine Ratio 11.7 (10.0-20.0); Calcium 7.5 mg/dL (8.5-10.1); Carbon Dioxide 22 mmol/L (20-30); Chloride 96 mmol/L (98-107); Sodium 131 mmol/L (136-145)
[2023-10-13 12:00] LABS: Lactic Acid w/Reflex 7.9 mmol/L (0.4-2.0)
[2023-10-13] MEDS: SODIUM BICARB 50mEq/50ml Vial 75 ML in SOD CHL 0.45% 1,000 ML IV SCH (12:00)
[2023-10-13 12:01] LABS: Bilirubin, Total 4.8 mg/dL (0.2-1.0); Total Protein 6.6 g/dL (5.7-8.2)
[2023-10-13 12:11] LABS: Blood Urea Nitrogen 51 mg/dL (9-23); Glucose 289 mg/dL (74-106); INR 3.35 (0.9-1.15); Partial Thromboplastin Time 38.6 SEC (24.5-34.5); Prothrombin Time 32.5 sec (9.3-11.8)
[2023-10-13 12:12] LABS: Alanine Aminotransferase 2386 U/L (7-40); Aspartate Aminotransferase > 6000 U/L (13-40)
[2023-10-13] MEDS ORDERED: ASPI-543 PO (12:13)
[2023-10-13] MEDS ORDERED: GABA300T4 PO (12:13)
[2023-10-13] MEDS ORDERED: LOSA-533 PO (12:13)
[2023-10-13] MEDS ORDERED: POTA-36 PO (12:13)
[2023-10-13] MEDS ORDERED: ALBU108A5 IN (12:13)
[2023-10-13] MEDS ORDERED: ATOR20TA50 PO (12:13)
[2023-10-13] MEDS ORDERED: EMPA1TAB PO (12:13)
[2023-10-13] MEDS ORDERED: FURO40TA4 PO (12:13)
[2023-10-13] MEDS ORDERED: MID10T PO (12:14)
[2023-10-13] MEDS: VANCOMYCIN 1GM/200ML 200 ML IV ONE (13:04)
[2023-10-13] MEDS: SODIUM ZIRCONIUM CYCL 10 GM PAK PO SCH (14:07)
[2023-10-13] MEDS: CEFEPIME 2GM/50ML NS 50 ML IV ONE (14:46)
[2023-10-13 15:17] LABS: Band Neutrophils % (manual) 7; Lymphocytes % (manual) 3 (10.0-50.0); Monocytes % (manual) 3 (0-12); Platelet Estimate Decreased
[2023-10-13] MEDS: OSELTAMIVIR 30MG/5ML ORAL SUSP GT SCH (22:00)
[2023-10-14] VITALS (37 sets, daily range): BP systolic 52–161; BP diastolic 10–83; PULSE 0–114; RESP 0–39; TEMP 100.2–100.8; O2SAT 82–92
[2023-10-14] MEDS ORDERED: HYOSCYAMINE SULF 0.125 MG ODT TAB SL PRN (02:30)
[2023-10-14] MEDS ORDERED: ONDANSETRON HCL 4 MG/2 ML VIAL IV PRN (02:30)
[2023-10-14] MEDS: LORazepam 2MG/ML-1ML VIAL ONE (02:52)
[2023-10-14] MEDS: MORPHINE SULFATE 4 MG/ML SYR/VIAL ONE (02:52)
[2023-10-14] MEDS: LORazepam 2MG/ML-1ML VIAL IV PRN (04:00)
[2023-10-14] MEDS: MORPHINE SULFATE 4 MG/ML SYR/VIAL IV PRN (04:00)
[2023-10-14] MEDS ORDERED: CEFEPIME 2GM/50ML NS 50 ML IV SCH (10:00)
== END 2023-10-14 11:15 | DRG 720 ==
LOC: EDBD 00:15 → ER 00:15 → TELE 06:44 → ICU WEST 10-12 09:10
PROVIDERS: ADMIT Internal Medicine; ATTEND Internal Medicine
PROC: 5A09357 Assistance with Respiratory Ventilation, Less than 24 Consecutive Hours, Continuous Positive Airway Pressure (ICD-10-PCS; principal; 2023-10-11)
PROC: 5A12012 Performance of Cardiac Output, Single, Manual (ICD-10-PCS; 2023-10-11)
PROC: 5A1945Z Respiratory Ventilation, 24-96 Consecutive Hours (ICD-10-PCS; 2023-10-11)
PROC: 0BH17EZ Insertion of Endotracheal Airway into Trachea, Via Natural or Artificial Opening (ICD-10-PCS; 2023-10-11)
PROC: 5A2204Z Restoration of Cardiac Rhythm, Single (ICD-10-PCS; 2023-10-11)
PROC: 5A12012 Performance of Cardiac Output, Single, Manual (ICD-10-PCS; 2023-10-12)
PROC: 5A2204Z Restoration of Cardiac Rhythm, Single (ICD-10-PCS; 2023-10-12)
PROC: 06HY33Z Insertion of Infusion Device into Lower Vein, Percutaneous Approach (ICD-10-PCS; 2023-10-13)
DX: A41.9 Sepsis, unspecified organism (principal); I46.9 Cardiac arrest, cause unspecified; N17.0 Acute kidney failure with tubular necrosis; J10.00 Influenza due to other identified influenza virus with unspecified type of pneumonia; J96.01 Acute respiratory failure with hypoxia; J96.02 Acute respiratory failure with hypercapnia; R65.21 Severe sepsis with septic shock; R57.0 Cardiogenic shock; K70.40 Alcoholic hepatic failure without coma; D68.9 Coagulation defect, unspecified; E87.4 Mixed disorder of acid-base balance; I50.23 Acute on chronic systolic (congestive) heart failure; I21.A1 Myocardial infarction type 2; D69.6 Thrombocytopenia, unspecified; B19.20 Unspecified viral hepatitis C without hepatic coma; E66.01 Morbid (severe) obesity due to excess calories; F17.210 Nicotine dependence, cigarettes, uncomplicated; F15.10 Other stimulant abuse, uncomplicated; E78.5 Hyperlipidemia, unspecified; I13.0 Hypertensive heart and chronic kidney disease with heart failure and stage 1 through stage 4 chronic kidney disease, or unspecified chronic kidney disease; N18.9 Chronic kidney disease, unspecified; F19.10 Other psychoactive substance abuse, uncomplicated; F12.90 Cannabis use, unspecified, uncomplicated; K76.82 Hepatic encephalopathy; E87.5 Hyperkalemia; I25.5 Ischemic cardiomyopathy; I47.20 Ventricular tachycardia, unspecified; K74.60 Unspecified cirrhosis of liver; Z86.718 Personal history of other venous thrombosis and embolism; Z86.711 Personal history of pulmonary embolism; Z91.148 Patient's other noncompliance with medication regimen for other reason; Z79.01 Long term (current) use of anticoagulants; Z68.41 Body mass index [BMI] 40.0-44.9, adult; R26.81 Unsteadiness on feet
CPT/HCPCS: 31500; 36415; 36600; 71045; 71275; 76705; 76775; 80053; 80307; 81001; 82140; 82150; 82550; 82570; 82805; 82962; 83036; 83605; 83690; 83735; 83880; 84100; 84156; 84300; 84484; 85007; 85025; 85027; 85379; 85610; 85730; 86703; 86706; 86803; 86850; 86900; 86901; 87040; 87070; 87081; 87086; 87205; 87804; 92950; 93005; 93306; 93970; 94002; 94003; 94640; 94660; 96365; 96375; 96376; 99291; C9113; G0378; G9035; J0171; J0692; J1265; J2704